=== PATIENT | male | born 1945 | race Caucasian/White ===

== ENCOUNTER 2016-07-09 23:16 | Emergency (ER) | payer OTHER, MEDICARE ==
[~2016-07-09] VITALS: Ht 172.7 cm; Wt 77.1 kg
[~2016-07-09 23:16] MED LIST: CIPROFLOXACIN500 MG PO; METRONIDAZOLE500 MG PO; VENTOLIN H0.09 MG/Ac
--- NOTE | 2016-07-10 00:15 | RADIOLOGY REPORT ---
EXAMINATION: XR HAND, LEFT CLINICAL INFORMATION: Injury to left fourth finger COMPARISON: None TECHNIQUE: AP, lateral, and oblique views of the left hand. FINDINGS: There is a comminuted fracture involving the distal phalanx of the fourth finger. Fracture extends from the proximal diaphyseal shaft through the distal tuft with slight displacement of the fracture fragments. No dislocation. No radiopaque foreign body. IMPRESSION: Comminuted fracture of the distal tuft of fourth finger.
--- NOTE | 2016-07-10 00:35 | ED UPPER/LOWER EXTREMITY COMPL ---
History of Present Illness General Chief Complaint: Hand or Wrist Injury Stated Complaint: FALL RING FINGER SWELLING ?BROKEN?PER PT Source: patient Exam Limitations: no limitations Vital Signs & Intake/Output Vital Signs & Intake/Output Vital Signs Date Time Temp Pulse Resp B/P Pulse O2 O2 Flow FiO2 Ox Delivery Rate 07/10 0144 97.2 65 18 158/74 96 07/09 2318 98.0 67 18 166/86 96 Room Air ED Intake and Output 07/10 0000 07/09 1200 Intake Total Output Total Balance Patient 170 lb Weight Allergies Coded Allergies: NO KNOWN ALLERGIES (08/19/14) Reconcile Medications Albuterol Sulfate (Ventolin Hfa) 90 MCG HFA.AER.AD (Unknown Dose) BREATHING ( Reported) CIPROFLOXACIN HCL (Ciprofloxacin HCl) 500 MG TABLET 1 TAB PO BID INFECTION ( Reported) Metronidazole 500 MG TABLET 1 TAB PO TID INFECTION (Reported) Triage Note: PT TO TRIAGE WITH C/O L RING FINGER PAIN/SWELLING S/P SLIPPED ON ICE AND FELL. PT DENIES HEADSTRIKE, LANDED ON HIS L HAND. PT HAS RING ON L 4TH FINGER AND UNABLE TO TAKE IT OFF. ICE PACK IN PLACE, PT REFUSED PAIN MEDS IN TRIAGE. Triage Nurses Notes Reviewed? yes Onset: Abrupt Duration: constant Severity: moderate Severity Numbers: 5 Pain/Injury Location: Left: 4th finger. Method of Injury: direct blow, fall HPI: Patient is a 70-year-old male who presents emergency and seen that today he had a trip and fall bracing his fall with his left outstretched hand in which he fell to the ground bracing his fall to the floor resulting in pain localized to the left fourth digit of his hand. Patient states that since she's been noticing worsening swelling ecchymosis and pain however he does have a ring on which is becoming tight and is concerned about this. (CHRYSTAL SAUCEDA) Past History Travel History Traveled to [place] past 21 day No Medical History Any Pertinent Medical History? see below for history Cardiovascular: WPP Respiratory: asthma Tetanus Vaccine: 11/24/13 Surgical History Surgical History: non-contributory Psychosocial History What is your primary language Jordanian Tobacco Use: Never used Family History Hx Contributory? No (CHRYSTAL SAUCEDA) Review of Systems Review of Systems Constitutional: Reports: no symptoms. EENTM: Reports: no symptoms. Respiratory: Reports: no symptoms. Cardiovascular: Reports: no symptoms. Gastrointestinal/Abdominal: Reports: no symptoms. Genitourinary: Reports: no symptoms. Musculoskeletal: Reports: see HPI, joint pain. Skin: Reports: see HPI. Neurological/Psychological: Reports: no symptoms. Hematologic/Endocrine: Reports: no symptoms. Immunological: Reports: no symptoms. All Other Systems: Reviewed and Negative (CHRYSTAL SAUCEDA) Physical Exam Physical Exam General Appearance: no apparent distress Neurologic/Tendon: normal sensation, normal motor functions, normal tendon functions, responds to pain, no evidence tendon injury, no pulse deficit Skin: intact, normal color, warm/dry Comments: Well-developed well-nourished no apparent distress. HEENT: Atraumatic, extraocular motion intact Neck: Supple, no lymphadenopathy Back: Nontender Respiratory: No respiratory distress Neuro: Alert and oriented x3 Psych: Mood affect normal, normal memory normal judgment. Diagram Hands Back 1) Generalized point tenderness swelling and ecchymosis noted, approximately 40% subungual hematoma noted Skin intact no active bleeding Mild decreased active range of motion noted with flexion No tendon deficit (CHRYSTAL SAUCEDA) Progress Differential Diagnosis: arterial insufficiency, compartment syndrome, contusion, dislocation, DVT, fracture, gout, septic arthritis, sprain, tendon injury Plan of Care: I discussed concerns of comminuted tuft fracture with patient her x-ray findings. After 1 attempt of using nylon suture technique to remove ring this was unsuccessful in which patient agreed to have ring cut and removed. Ring was removed successfully no complications Placed a metal finger splint to left fourth digit of hand with tape patient tolerated well He was strongly advised to follow-up with orthopedic surgeon as discussed in discharge instructions and he will comply Diagnostic Imaging: Viewed by Me: Radiology Read. Radiology Impression: acute abnormality, fracture Comments: PATIENT: TONEY EASLEY PRESENT AGE: 70 PATIENT ACCOUNT NO: [id number] : 44 LOCATION: [facility] ORDERING PHYSICIAN: OSVALDO ARROYO MD SERVICE DATE: 07/09/16 EXAM TYPE: RAD - XRY-HAND, TWO VIEWS L EXAMINATION: XR HAND, LEFT CLINICAL INFORMATION: Injury to left fourth finger COMPARISON: None TECHNIQUE: AP, lateral, and oblique views of the left hand. FINDINGS: There is a comminuted fracture involving the distal phalanx of the fourth finger. Fracture extends from the proximal diaphyseal shaft through the distal tuft with slight displacement of the fracture fragments. No dislocation. No radiopaque foreign body. IMPRESSION: Comminuted fracture of the distal tuft of fourth finger. (CRHYSTAL SAUCEDA) Departure Departure Disposition: HOME OR SELF CARE Condition: Stable Clinical Impression Primary Impression: Fracture of phalanx of ring finger Secondary Impressions: Subungual hematoma of finger of left hand Referrals: JOSEPHINE GEORGES,PATTI (PCP/Family) RADHA GEORGES,MARYSOL Additional Instructions: As discussed begin icing the area directly 20 minutes every 2 hours. Begin over -the-counter ibuprofen if needed for pain and inflammation as directed. On Monday please follow-up with orthopedic Dr. Zuleta for further evaluation treatment. If symptoms worsen return to emergency room. Please use the finger splint has been applied to on in the emergency room at all times and to you follow up with the orthopedic doctor. Departure Forms: Customer Survey General Discharge Information (CHRYSTAL SAUCEDA) PA/CANDLE EXTRUSION MACHINE OPERATOR Co-Sign Statement Statement: ED Attending supervision documentation- [X] I saw and evaluated the patient. I have also reviewed all the pertinent lab results and diagnostic results. I agree with the findings and the plan of care as documented in the PA's/CANDLE EXTRUSION MACHINE OPERATOR's documentation. [X] I have reviewed the ED Record and agree with the PA's/CANDLE EXTRUSION MACHINE OPERATOR's documentation. [] Additions or exceptions (if any) to the PAs/CANDLE EXTRUSION MACHINE OPERATOR's note and plan are summarized below: [] (DINA GEORGES,OSVALDO)
[2016-07-10 01:44] VITALS: BP 158/74
== END 2016-07-10 01:45 ==
LOC: ERH 23:16
DX: S62.635A Displaced fracture of distal phalanx of left ring finger, initial encounter for closed fracture (principal); S60.142A Contusion of left ring finger with damage to nail, initial encounter; W19.XXXA Unspecified fall, initial encounter
CPT/HCPCS: 73120-LT